=== PATIENT | male | born 1935 | race Caucasian/White ===

== ENCOUNTER 2023-07-15 19:42 | Observation (INO) ==
[2023-07-16 06:10] LABS: Calcium 8.9 mg/dL (8.6-10.3); Creatinine, Serum 1.27 mg/dL (0.67-1.17); HDL Cholesterol 26.7 mg/dL; Potassium 4.4 mmol/L (3.5-5.0)
[2023-07-16] MEDS ORDERED: Dextrose 50% Syringe 50 ml 25 GM/50 ML SYRINGE IV PUSH PRN (15:02)
[2023-07-16] MEDS: Insulin GLARGINE 100 un/ml 10 ml VIAL SUBCUT SCH (20:33)
[2023-07-17 06:42] LABS: ABS Basophils 0.1 10^3/uL (0.0-0.1); ABS Eosinophils 0.3 10^3/uL (0.0-0.5); ABS Lymphocytes 1.3 10^3/uL (1.0-4.8); ABS Monocytes 0.7 10^3/uL (0.0-1.1); ABS Neutrophils 5.2 10^3/uL (1.5-7.6); Eosinophil % 3.6 %; Hematocrit 37.7 % (38-53); Hemoglobin 13.1 g/dL (13.2-16.3); Lymphocyte % 16.6 %; Mean Corpuscular Hgb Conc 34.8 g/dL (31-36); Mean Corpuscular Volume 106.4 fL (80-97); Platelet Count 210 10^3/uL (150-450); Red Blood Count 3.54 10^6/uL (4.06-5.63); Red Cell Distribution Width 13.8 % (12-17); White Blood Count 7.5 10^3/uL (3.6-10.2)
[2023-07-17 07:00] LABS: Calcium 9.5 mg/dL (8.6-10.3); Creatinine, Serum 1.44 mg/dL (0.67-1.17); Magnesium 2.1 mg/dL (1.9-2.7); Phosphorus 3.6 mg/dL (2.5-5.0); Potassium 4.4 mmol/L (3.5-5.0); eGFR CKD-EPI 47.3 (>60)
[2023-07-17 08:20] LABS: TSH Ultra Thyroid Stim Horm 1.76 mcIU/mL (0.34-5.60)
[2023-07-17 08:22] LABS: Free T4 1.32 ng/dL (0.61-1.12)
[2023-07-17] MEDS: NS 0.9% 500 ml BAG 500 ML IV ONE (12:13)
[2023-07-17 14:19] LABS: Calcium 9.2 mg/dL (8.6-10.3); Creatinine, Serum 1.43 mg/dL (0.67-1.17); Potassium 4.5 mmol/L (3.5-5.0); eGFR CKD-EPI 47.7 (>60)
[2023-07-17 14:46] VITALS: BP 140/68
== END 2023-07-17 15:20 | disposition home or self-care (01) ==
LOC: ED 19:42 → EDHOLD 19:42 → SUATTDRO 20:06 → MEDTELE 07-16 15:14 → AA 07-16 15:28 → MEDTELE 07-16 15:29 → AA 07-16 16:22 → MEDTELE 07-16 16:22
PROVIDERS: ADMIT Internal Medicine; ATTEND Internal Medicine